=== PATIENT | female | born 2000 | race Caucasian/White ===

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

== ENCOUNTER 2019-01-21 14:51 | Emergency (ER) | payer BC ==
[2019-01-21 15:00] VITALS: BP 101/59
--- NOTE | 2019-01-21 15:31 | UC ---
Respiratory Complaint HPI - HPI Summary HPI Summary: 18 female with cough x 1 week sore throat today no fever cough productive at times no CP or sob slight congestion - History of Current Complaint Chief Complaint: UCRespiratory Stated Complaint: THROAT PAIN Time Seen by Provider: 01/21/19 15:05 Hx Obtained From: Patient Hx Last Menstrual Period: a week ago Onset/Duration: Gradual Onset Timing: Constant Severity Initially: Mild Severity Currently: Mild Pain Intensity: 4 Pain Scale Used: 0-10 Numeric Character: Cough: Productive Aggravating Factors: Nothing Alleviating Factors: Nothing Associated Signs And Symptoms: Positive: Negative - Allergies/Home Medications Allergies/Adverse Reactions: Allergies Allergy/AdvReac Type Severity Reaction Status Date / Time No Known Allergies Allergy Verified 01/21/19 15:00 Home Medications: Home Medications Ethinyl Estradiol/Drospirenone [Radha 28 Tablet] 1 tab PO DAILY 01/21/19 [History Confirmed 01/21/19] PMH/Surg Hx/FS Hx/Imm Hx Previously Healthy: Yes - Surgical History Surgical History: Yes Surgery Procedure, Year, and Place: app2017 - Family History Known Family History: Positive: Cardiac Disease, Hypertension, Other - Noncontributory, Non-Contributory Family History: Noncontributory - Social History Alcohol Use: Occasionally Alcohol Amount: every few weekends, 4-5 drinks Substance Use Type: None Smoking Status (MU): Never Smoked Tobacco - Immunization History Most Recent Influenza Vaccination: October 2017 Most Recent Pneumonia Vaccination: never Review of Systems All Other Systems Reviewed And Are Negative: Yes Constitutional: Positive: Negative Skin: Positive: Negative Eyes: Positive: Negative ENT: Positive: Sore Throat, Sinus Congestion Respiratory: Positive: Cough Cardiovascular: Positive: Negative Gastrointestinal: Positive: Negative Genitourinary: Positive: Negative Neurovascular: Positive: Negative Musculoskeletal: Positive: Negative Neurological: Positive: Negative Psychological: Positive: Negative Physical Exam Triage Information Reviewed: Yes Appearance: Well-Appearing, No Pain Distress, Well-Nourished Vital Signs: Initial Vital Signs Temp 98 F 01/21/19 14:56 Pulse 74 01/21/19 14:56 Resp 18 01/21/19 14:56 BP 101/59 01/21/19 14:56 Pulse Ox 100 01/21/19 14:56 Vital Signs Reviewed: Yes Eyes: Positive: Conjunctiva Clear ENT: Positive: Hearing grossly normal, Pharyngeal erythema, TMs normal, Uvula midline. Negative: Nasal congestion, Nasal drainage, Tonsillar swelling, Tonsillar exudate, Trismus, Muffled voice, Hoarse voice Dental Exam: Normal Neck: Positive: Supple, Nontender, No Lymphadenopathy Respiratory: Positive: Lungs clear, Normal breath sounds, No respiratory distress Cardiovascular: Positive: RRR, No Murmur, Pulses Normal Musculoskeletal: Positive: ROM Intact, No Edema Neurological: Positive: Alert Psychological Exam: Normal Skin Exam: Normal Diagnostics - Laboratory Lab Results: strep (-) Respiratory Course/Dx - Differential Dx/Diagnosis Provider Diagnosis: Viral upper respiratory tract infection with cough Discharge ED - Sign-Out/Discharge Documenting (check all that apply): Patient Departure All imaging exams completed and their final reports reviewed: No Studies - Discharge Plan Condition: Stable Disposition: HOME Prescriptions: Benzonatate CAP* [Tessalon CAP*] 100 - 200 mg PO TID PRN #28 cap PRN Reason: Cough Patient Education Materials: Upper Respiratory Infection (ED) Referrals: [facility] [place] [facility] [Outside] - If Needed Additional Instructions: rest fluids tylenol or advil if needed recheck in 4-7 days if not better - Billing Disposition and Condition Condition: STABLE Disposition: Home
== END 2019-01-21 15:40 | disposition home or self-care (01) ==
LOC: UCEAST 14:51
DX: J06.9 Acute upper respiratory infection, unspecified (principal); R05 Cough
CPT/HCPCS: 87651; 99212; G0463

== ENCOUNTER 2019-01-29 14:25 | Emergency (ER) | payer BC ==
[2019-01-29 14:42] VITALS: BP 101/57
--- NOTE | 2019-01-29 14:44 | UC ---
Respiratory Complaint HPI - HPI Summary HPI Summary: 18 yo female presents with a dry cough. She tells me that for the last 2-3 weeks she has had a drive cough. She tells me that she was seen here about a week ago and was prescribed tessalon, which have helped a little but she is still coughing. She has not taken anything OTC recently for her symptoms. Denies fever, chills, sinus symptoms, sore throat, SOB, chest pain. - History of Current Complaint Chief Complaint: UCGeneralIllness Stated Complaint: COUGH Time Seen by Provider: 01/29/19 14:44 Hx Obtained From: Patient Hx Last Menstrual Period: a week ago Onset/Duration: Gradual Onset Pain Intensity: 0 Character: Cough: Nonproductive - Allergies/Home Medications Allergies/Adverse Reactions: Allergies Allergy/AdvReac Type Severity Reaction Status Date / Time No Known Allergies Allergy Verified 01/21/19 15:00 PMH/Surg Hx/FS Hx/Imm Hx - Additional Past Medical History Additional PMH: None - Surgical History Surgical History: Yes Surgery Procedure, Year, and Place: app2017 - Family History Known Family History: Positive: Cardiac Disease, Hypertension, Other - Noncontributory, Non-Contributory Family History: Noncontributory - Social History Occupation: Student Lives: With Family Alcohol Use: Occasionally Alcohol Amount: every few weekends, 4-5 drinks Substance Use Type: None Smoking Status (MU): Never Smoked Tobacco - Immunization History Most Recent Influenza Vaccination: October 2017 Most Recent Pneumonia Vaccination: never Review of Systems All Other Systems Reviewed And Are Negative: No Constitutional: Positive: Negative Skin: Positive: Negative Eyes: Positive: Negative ENT: Positive: Negative Respiratory: Positive: Cough Cardiovascular: Positive: Negative Gastrointestinal: Positive: Negative Psychological: Positive: Negative Physical Exam - Summary Physical Exam Summary: GENERAL: NAD. WDWN. No pain distress. SKIN: No rashes, sores, lesions, or open wounds. HEENT: Head: AT/NC Eyes: EOM intact. Conjunctiva clear without inflammation or discharge. Ears: Hearing grossly normal. TMs intact, no bulging, erythema, or edema. Nose: Nasal mucosa pink and moist. NTTP maxillary and frontal sinus. Throat: Posterior oropharynx without exudates, erythema, or tonsillar enlargement. Uvula midline. NECK: Supple. Nontender. No lymphadenopathy. CHEST: CTAB. No accessory muscle use. Breathing comfortably and in no distress. CV: RRR. Pulses intact. Cap refill <2seconds NEURO: Alert. PSYCH: Age appropriate behavior. Triage Information Reviewed: Yes Vital Signs: Initial Vital Signs Temp 97.6 F 01/29/19 14:37 Pulse 77 01/29/19 14:37 Resp 18 01/29/19 14:37 BP 101/57 01/29/19 14:37 Pulse Ox 100 01/29/19 14:37 Vital Signs Reviewed: Yes Diagnostics - Radiology CXR Radiology Interpretation Completed By: Radiologist Summary of Radiographic Findings: IMPRESSION: NO ACTIVE CARDIOPULMONARY DISEASE. Respiratory Course/Dx - Course Course Of Treatment: Suspect irritant cough/bronchitis. Will rx for prednisone and cough syrup. Will also rx for zpak if symptoms not improved in the next few days - Differential Dx/Diagnosis Provider Diagnosis: Cough Discharge ED - Sign-Out/Discharge Documenting (check all that apply): Patient Departure All imaging exams completed and their final reports reviewed: Yes - Discharge Plan Condition: Stable Disposition: HOME Prescriptions: Azithromycin TAB* [Zithromax TAB (Z-YIFAN) 250 mg #6 tabs] 2 tab PO .TODAY, THEN 1 DAILY #1 yifan Codeine Phosphate/Guaifenesin [Guaifen-Codeine 100-10 mg/5 ml] 5 ml PO TID PRN # 75 ml MDD 15mL PRN Reason: Cough predniSONE TAB* [Deltasone 20 MG TAB*] 40 mg PO DAILY #10 tab Patient Education Materials: Acute Bronchitis (ED) Referrals: No Primary Care Phys,NOPCP [Primary Care Provider] - Additional Instructions: If you develop a fever, shortness of breath, chest pain, new or worsening symptoms - please call your PCP or go to the ED immediately. If your symptoms do not improve within 3 days - may start the antibiotic - Billing Disposition and Condition Condition: STABLE Disposition: Home
== END 2019-01-29 15:44 | disposition home or self-care (01) ==
LOC: UCEAST 14:25
DX: R05 Cough (principal)
CPT/HCPCS: 71046; 99212; G0463

== ENCOUNTER 2019-02-04 17:06 | Emergency (ER) | payer BC ==
[2019-02-04 17:19] VITALS: BP 121/73
--- NOTE | 2019-02-04 17:33 | UC ---
Throat Pain/Nasal Dustin HPI - HPI Summary HPI Summary: 18 year old female with no PMh presents with cough x 2-3 weeks, dizziness sensation like room is spinning x 2 episodes, fatigue with writing notes at class x 1. All symptoms resolved currently. patient has taken steroids, cough medicaion, on last day of XZ=pack currently. no fever, chills. no sinus pain , + ear congestion. No chest pain, no SOB. - History of Current Complaint Chief Complaint: UCRespiratory Stated Complaint: URI Time Seen by Provider: 02/04/19 17:15 Hx Obtained From: Patient Hx Last Menstrual Period: one month ago ?: No Onset/Duration: Sudden Onset Severity: Moderate Pain Intensity: 3 Pain Scale Used: 0-10 Numeric Cough: Nonproductive Associated Signs & Symptoms: Negative: Dysphagia, FB Sensation, Sinus Discomfort , Nasal Discharge, Fever, Vomiting - Allergies/Home Medications Allergies/Adverse Reactions: Allergies Allergy/AdvReac Type Severity Reaction Status Date / Time No Known Allergies Allergy Verified 01/21/19 15:00 PMH/Surg Hx/FS Hx/Imm Hx Previously Healthy: Yes - Surgical History Surgical History: Yes Surgery Procedure, Year, and Place: app2017 - Family History Known Family History: Positive: Unknown, Cardiac Disease, Hypertension, Other - Noncontributory, Non-Contributory Family History: Noncontributory - Social History Occupation: Student Alcohol Use: Occasionally Alcohol Amount: every few weekends, 4-5 drinks Substance Use Type: None Smoking Status (MU): Never Smoked Tobacco - Immunization History Most Recent Influenza Vaccination: October 2017 Most Recent Pneumonia Vaccination: never Review of Systems All Other Systems Reviewed And Are Negative: Yes Constitutional: Positive: Fatigue ENT: Positive: Sinus Congestion Musculoskeletal: Negative: Arthralgia, Edema, Myalgia Neurological: Positive: Weakness Is Patient Immunocompromised?: No Physical Exam Triage Information Reviewed: Yes Appearance: Well-Appearing, No Pain Distress, Well-Nourished Vital Signs: Initial Vital Signs Temp 98.6 F 02/04/19 17:16 Pulse 91 02/04/19 17:16 Resp 12 02/04/19 17:16 BP 121/73 02/04/19 17:16 Pulse Ox 100 02/04/19 17:16 Vital Signs Reviewed: Yes Eyes: Positive: Conjunctiva Clear ENT: Positive: Hearing grossly normal, Pharyngeal erythema, TMs normal, Uvula midline. Negative: TM bulging, TM dull, Tonsillar swelling, Tonsillar exudate, Sinus tenderness Neck: Positive: Supple, Nontender, No Lymphadenopathy. Negative: Nuchal Rigidity, Enlarged Nodes @ Respiratory: Positive: Chest non-tender, Lungs clear, Normal breath sounds, No respiratory distress, No accessory muscle use. Negative: Respiratory distress, Decreased breath sounds, Crackles, Rhonchi, Stridor, Wheezing Cardiovascular: Positive: RRR, No Murmur Musculoskeletal Exam: Normal Psychological Exam: Normal Skin Exam: Normal Throat Pain/Nasal Course/Dx - Course Course Of Treatment: - Increase fluid intake - Complete antibioitics - Increase hydration to prevent cough, dizziness - Decongestants such as Claritin, Benadryl as needed for congestion. - motrin/ Tylenol as needed for pain - Increase rest - Follow up with [facility] if no improvement within 1 week - Go to ER with chest pain, shortness of breath, increased dizziness - Differential Dx/Diagnosis Differential Diagnosis/HQI/PQRI: Sinusitis, URI Provider Diagnosis: Viral syndrome Discharge ED - Sign-Out/Discharge Documenting (check all that apply): Patient Departure All imaging exams completed and their final reports reviewed: No Studies - Discharge Plan Condition: Good Disposition: HOME Patient Education Materials: Acute Bronchitis (ED), Dizziness (ED), Dehydration (ED) Referrals: No Primary Care Phys,NOPCP [Primary Care Provider] - [facility] [Outside] Additional Instructions: - Increase fluid intake - Complete antibioitics - Increase hydration to prevent cough, dizziness - Decongestants such as Claritin, Benadryl as needed for congestion. - motrin/ Tylenol as needed for pain - Increase rest - Follow up with [facility] if no improvement within 1 week - Go to ER with chest pain, shortness of breath, increased dizziness - Billing Disposition and Condition Condition: GOOD Disposition: Home
== END 2019-02-04 17:58 | disposition home or self-care (01) ==
LOC: UCEAST 17:06
DX: B34.9 Viral infection, unspecified (principal); R53.83 Other fatigue; R09.81 Nasal congestion; R53.1 Weakness
CPT/HCPCS: 99211; G0463